=== PATIENT | female | born 1965 | race Caucasian/White ===

== ENCOUNTER 2018-03-26 21:49 | Emergency (ER) | payer BC ==
[2018-03-26] MEDS: HYDROCODONE/APAP (5/325) TAB PO (22:50)
== END 2018-03-26 23:00 | disposition home or self-care (01) ==
LOC: FTE 21:49
DX: H66.92 Otitis media, unspecified, left ear (principal); J02.9 Acute pharyngitis, unspecified
CPT/HCPCS: 99283